=== PATIENT | female | born 1940 | race Caucasian/White ===

== ENCOUNTER → 2018-10-02 | Outpatient (CLI) | payer MEDICARE ==
--- NOTE | 2018-10-02 17:24 | PCVCIMAG ---
APPROVED REPORT Study performed: 10/02/2018 13:13:26 EXAM: Comprehensive 2D, Doppler, and color-flow Echocardiogram Patient Location: Echo lab Room #: 2Status: routine BSA: 2.00 HR: 65 bpmBP: 130/82 mmHg Rhythm: NSR Other Information Study Quality: Good Risk Factors: Cardiac Risk Factors: HTN, Hyperlipidemia Indications Chest Pressure Murmur Dyspnea CAD Fatigue Elevated cor Ca+ score,Hx DVT/PE, hypercoag 2D Dimensions IVSd: 10.86 (7-11mm)LVOT Diam: 24.15 (18-24mm) LVDd: 42.89 mm PWd: 13.32 (7-11mm)Ascending Ao: 27.28 (22-36mm) LVDs: 31.13 (25-40mm) Left Atrium: 40.61 (27-40mm) Aortic Root: 25.81 mm LV Single Plane 4CH: 57.48 % LV Single Plane 2CH: 66.99 % Biplane EF: 63.6 % Volumes Left Atrial Volume (Systole) Single Plane 4CH: 59.15 mLSingle Plane 2CH: 49.52 mL Biplane LA Volume: 56.00 mLLA ESV Index: 28.00 mL/m2 Aortic Valve AoV Peak Josef.: 4.11 m/s AO Peak Gr.: 65.88 mmHgLVOT Max P.99 mmHg AO Mean Gr.: 41.88 mmHgLVOT Mean P.18 mmHg AO V2 Mean: 3.03 m/sLVOT Max V: 0.72 m/s AO V2 VTI: 115.37 cmLVOT Mean V: 0.51 m/s ROBER (VTI): 0.70 [id number] V1 VTI: 17.56 cm ROBER Vmax: 0.80 cm2 SV (LVOT): 80.42 mL Mitral Valve E/A Ratio: 0.6 MV Decel. Time: 316.07 ms MV E Max Josef.: 0.62 m/s MV A Josef.: 0.97 m/s IVRT: 110.73 ms Pulmonary Valve PV Peak Josef.: 0.71 m/sPV Peak Gr.: 2.04 mmHg Pulmonary Vein P Vein S: 0.57 m/sP Vein A: 0.27 m/s P Vein D: 0.36 m/sP Vein A Dur.: 121.1 msec P Vein S/D Ratio: 1.58 Tricuspid Valve TR Peak Josef.: 2.16 m/s TR Peak Gr.: 18.72 mmHg TV Vmax: 0.48 m/sPA Pressure: 26.00 mmHg Left Ventricle The left ventricle is normal size. There is normal LV segmental wall motion. There is normal left ventricular wall thickness. Left ventricular systolic function is normal. The left ventricular ejection fraction is within the normal range. LVEF is 60-65%. Grade I - abnormal relaxation pattern. Right Ventricle The right ventricle is normal size. The right ventricular systolic function is normal. Atria The left atrium size is normal. The right atrium size is normal. Aortic Valve Aortic valve is trileaflet. Severe aortic valve sclerosis. No aortic regurgitation is present. Severe aortic stenosis. Highest mean aortic valve gradient is 42 mmHg. Peak aortic valve gradient is _68 mmHg. Calculated ROBER by the continuity equation is 0.7 cm2. Mitral Valve The mitral valve is normal in structure. There is no mitral valve regurgitation noted. No evidence of mitral valve stenosis. Tricuspid Valve The tricuspid valve is normal in structure. Mild tricuspid regurgitation. No pulmonary hypertension. Pulmonic Valve The pulmonary valve is normal in structure. There is no pulmonic valvular regurgitation. Great Vessels The aortic root is normal in size. IVC is normal in size and collapses >50% with inspiration. Pericardium There is no pericardial effusion. <Conclusion> The left ventricle is normal size. LVEF is 60-65%. Grade I - abnormal relaxation pattern. The right ventricular systolic function is normal. The left atrium size is normal. Aortic valve is trileaflet. Severe aortic valve sclerosis. Severe aortic stenosis. Highest mean aortic valve gradient is 42 mmHg. Peak aortic valve gradient is _68 mmHg. Calculated ROBER by the continuity equation is 0.7 cm2. There is no mitral valve regurgitation noted. The aortic root is normal in size. There is no pericardial effusion.
== END | disposition home or self-care (01) ==
LOC: PCVCIMAG 13:24
PROVIDERS: ATTEND Internal Medicine Cardiovascular Disease
DX: I08.2 Rheumatic disorders of both aortic and tricuspid valves (principal); R01.1 Cardiac murmur, unspecified; R06.00 Dyspnea, unspecified; I25.10 Atherosclerotic heart disease of native coronary artery without angina pectoris; R53.83 Other fatigue; R93.1 Abnormal findings on diagnostic imaging of heart and coronary circulation
CPT/HCPCS: 93005; 93306; G0463

== ENCOUNTER → 2018-10-04 | Outpatient (CLI) | payer MEDICARE ==
[~2018-10-04] MED LIST: AMINOPHYLLINE 250 MG/10 ML VIAL. ONE; REGADENOSON 0.4 MG/5 ML DISP.SYRIN. IV ONE
--- NOTE | 2018-10-04 13:14 | PCVCIMAG ---
APPROVED REPORT Imaging Protocol: Rest Tc-99m/Stress Tc-99m 1 day Study performed: 10/04/2018 09:53:49 Indication: Dyspnea, Critical Aortic Valve Stenosis, Chest Heaviness Patient Location: Out-Patient Stress Nurse: Amanda Diaz RN, Kaela Lawrence RN DE Tech:PATRICIA Stanford Ht: 5 ft 7 in Wt: 195 lbs BSA: 2.00 m2 HR: 75 bpm BP: 195/80 mmHg BMI: 30.53 Medical History Medical History: HTN, Hyperlipidemia Medications: Metoprolol, Zetia, Lasix, Crestor, Warfarin Allergies: Multiple, none relevant to this exam. Cardiac Risk Factors: Age Pretest Chest Pain Characteristics: No chest pain Exercise History: Sedentary Meds Held (24 hrs): Metoprolol Resting Data Rest SPECT myocardial perfusion imaging was performed in supine position 45 minutes following the intravenous injection of 10.6 mCi of Tc-99m Sestamibi. Time of rest injection: 944 Date: 10/04/2018 Administration Route: IV Administration Site: Right Hand Pharmacologic Stress Pharmacologic stress test was performed by injecting Regadenoson 0.4 mg IV push over 10-15 seconds immediately followed by the intravenous injection of 33.3 mCi of Tc-99m Sestamibi. Time of stress injection: 0 Date: 10/04/2018 Administration Route: IV Administration Site: Right Hand Gated Stress SPECT was performed 45 minutes after stress injection. The images were gated to evaluate regional wall motion and calculate left ventricular ejection fraction. Stress Test Details Stress Test: Pharmacologic stress testing performed using 0.4 mg of regadenoson per 5 mL given IV over 10 seconds. Reason for pharmacologic stress test: Critical Aortic Valve Stenosis. Reversal agent Aminophyline 100 mg, given intravenously for chest pain, persistant low blood pressure. HRMax Heart Rate (APMHR): 141 bpm Resting HR: 75 bpmTarget HR (85% APMHR): 119 bpm Max HR Achieved: 112 bpm % of APMHR: 79 Recovery HR: 75 bpm BP Resting BP: 195/80 mmHg Max BP: 100/49 mmHg Recovery BP: 170/73 mmHg ECG Resting ECG: Sinus Rhythm, LBBB Stress ECG: Sinus Tachycardia, LBBB ST Change: Nondiagnostic LBBB Arrhythmia: PVC's Recovery ECG: Sinus Rhythm, NSSTT changes Clinical Reason for Termination: Completed protocol Stress Symptoms: Dyspnea, Chest heaviness, Lightheaded Symptoms resolved during recovery with aminophylline. Nurse Comments Multiple profound symptoms with Lexiscan administration. Low BP response and hyperventillation with chest heaviness and intense anxiety. Reversed with Aminophylline. Study Quality Study: Good Study Data Post stress, the left ventricular ejection was 73%.. SSS: 2 SRS: 0 SDS: 2 TID = 1.00. Perfusion Normal left ventricular perfusion. Normal perfusion on both the stress and rest images. Wall Motion Normal left ventricular wall motion. Nuclear Conclusion ECG Findings: non-diagnostic Clinical Findings: non-diagnostic Nuclear Findings: negative for ischemia Exercise Capacity: not assessed Left Ventricular Function: normal Risk Study: low This study is of low probability for inducible ischemia or prior infarct. Normal global and segmental LV systolic function.
== END | disposition home or self-care (01) ==
LOC: PCVCIMAG 09:36
PROVIDERS: ATTEND Internal Medicine Cardiovascular Disease
DX: R06.02 Shortness of breath (principal); R01.1 Cardiac murmur, unspecified; Z88.1 Allergy status to other antibiotic agents
CPT/HCPCS: 78452; 93017; A9500; J0280; J2785

== ENCOUNTER → 2018-12-17 | Outpatient (CLI) | payer MEDICARE ==
--- NOTE | 2018-12-17 14:33 | PCVCIMAG ---
APPROVED REPORT Study performed: 12/17/2018 13:25:57 EXAM: Comprehensive 2D, Doppler, and color-flow Echocardiogram Patient Location: Echo lab Status: routine BSA: 2.02 HR: 64 bpmBP: 140/70 mmHg Rhythm: NSR Other Information Study Quality: Technically Difficult Indications Aortic Valve Disease Hypertension/HDD Post AVR 2D Dimensions IVSd: 11.11 (7-11mm)LVOT Diam: 20.55 (18-24mm) LVDd: 40.11 mm PWd: 10.78 (7-11mm)Ascending Ao: 27.40 (22-36mm) LVDs: 31.20 (25-40mm) Left Atrium: 42.02 (27-40mm) Aortic Root: 30.91 mm LV Single Plane 4CH: 53.54 % LV Single Plane 2CH: 59.86 % Biplane EF: 55.8 % Volumes Left Atrial Volume (Systole) Single Plane 4CH: 65.56 mLSingle Plane 2CH: 49.26 mL LA ESV Index: 29.00 mL/m2 Aortic Valve AoV Peak Josef.: 2.25 m/s AO Peak Gr.: 20.28 mmHgLVOT Max P.78 mmHg AO Mean Gr.: 11.07 mmHgLVOT Mean P.80 mmHg AO V2 Mean: 1.59 m/sLVOT Max V: 0.83 m/s AO V2 VTI: 58.39 cmLVOT Mean V: 0.65 m/s ROBER (VTI): 1.22 [id number] V1 VTI: 21.46 cm ROBER Vmax: 1.23 cm2 SV (LVOT): 71.16 mL Mitral Valve E/A Ratio: 1.0 MV Decel. Time: 200.69 ms MV E Max Josef.: 0.92 m/s MV A Josef.: 0.96 m/s TDI E/Lateral E': 8.36E/Medial E': 13.14 Medial E' Josef.: 0.07 m/s Lateral E' Josef.: 0.11 m/s Pulmonary Valve PV Peak Gr.: 1.38 mmHg Pulmonary Vein P Vein S: 0.57 m/sP Vein A: 0.38 m/s P Vein D: 0.37 m/sP Vein A Dur.: 76.1 msec P Vein S/D Ratio: 1.54 Tricuspid Valve TR Peak Josef.: 2.62 m/s TR Peak Gr.: 27.37 mmHg Left Ventricle The left ventricle is normal size. There is normal LV segmental wall motion. There is normal left ventricular wall thickness. Left ventricular systolic function is normal. The left ventricular ejection fraction is within the normal range. LVEF is 55-60%. Right Ventricle The right ventricle is normal size. The right ventricular systolic function is normal. Atria The left atrium size is normal. The right atrium size is normal. Aortic Valve AVR Trace aortic regurgitation. Peak gradient is 20mmhg. Mean gradient is 11mmHg. Caculated aortic valve is 1.2cm2. Mitral Valve The mitral valve is normal in structure. There is no mitral valve regurgitation noted. No evidence of mitral valve stenosis. Tricuspid Valve The tricuspid valve is normal in structure. There is no tricuspid valve regurgitation noted. Pulmonic Valve The pulmonary valve is normal in structure. There is no pulmonic valvular regurgitation. Great Vessels The aortic root is normal in size. IVC is normal in size and collapses >50% with inspiration. Pericardium There is no pericardial effusion. <Conclusion> The left ventricle is normal size. LVEF is 55-60%. The right ventricle is normal size. The left atrium size is normal. AVR Peak gradient is 20mmhg. Mean gradient is 11mmHg. Caculated aortic valve is 1.2cm2. There is no mitral valve regurgitation noted. There is no tricuspid valve regurgitation noted. The aortic root is normal in size. There is no pericardial effusion.
== END | disposition home or self-care (01) ==
LOC: PCVCIMAG 13:17
PROVIDERS: ATTEND Internal Medicine Cardiovascular Disease
DX: I35.0 Nonrheumatic aortic (valve) stenosis (principal); I82.409 Acute embolism and thrombosis of unspecified deep veins of unspecified lower extremity; D68.59 Other primary thrombophilia; I10 Essential (primary) hypertension; I48.91 Unspecified atrial fibrillation; Z95.2 Presence of prosthetic heart valve; Z88.1 Allergy status to other antibiotic agents
CPT/HCPCS: 36415; 80061; 93005; 93306; G0463

== ENCOUNTER → 2019-04-11 | Outpatient (CLI) | payer MEDICARE | END | disposition home or self-care (01) | LOC: PCVCCLINIC 15:00 | PROVIDERS: ATTEND Internal Medicine Cardiovascular Disease | DX: I35.0 Nonrheumatic aortic (valve) stenosis (principal); D68.59 Other primary thrombophilia; E78.5 Hyperlipidemia, unspecified; I10 Essential (primary) hypertension; Z95.2 Presence of prosthetic heart valve; Z90.710 Acquired absence of both cervix and uterus; Z79.82 Long term (current) use of aspirin; Z88.8 Allergy status to other drugs, medicaments and biological substances | CPT/HCPCS: 36415; 80061; 85610; 93005; G0463 ==